=== PATIENT | male | born 1945 | race Caucasian/White ===

== ENCOUNTER 2017-05-30 06:29 | Emergency (ER) | payer BC ==
[~2017-05-30] VITALS: Ht 162.6 cm; Wt 86.6 kg
[2017-05-30] MEDS ORDERED: SODIUM CHLORIDE 0.9% 1,000 ML IV ONE (07:44)
[2017-05-30] MEDS ORDERED: KETOROLAC TROMETH 30 MG/ML 1ML VIAL IV ONE (07:45)
[2017-05-30 08:26] LABS: Urine Bilirubin Negative (Negative); Urine Blood Negative /uL (Negative); Urine Color Yellow (Yellow); Urine Glucose Normal (Normal); Urine Ketone 1+ (Negative); Urine Mucus FEW (None Seen); Urine Nitrite Negative (Negative); Urine RBC <1 /hpf (0 - 3); Urine Squamous Epithelial Cell FEW /hpf (<5); Urine Urobilinogen Normal (Negative); Urine pH 5.5 (5.0-8.0)
[2017-05-30 09:50] LABS: Basophils # (auto) 0.1 uL; Basophils % (auto) 0.3 % (0.0-2.0); Eosinophils # (auto) 0.1 uL; Eosinophils % (auto) 0.3 % (0.0-7.0); Hematocrit 42.8 % (41.0-53.0); Hemoglobin 14.4 g/dL (13.5-17.5); Lymphocytes # (auto) 1.7 uL; Mean Corpuscular Hemoglobin 31.4 pg (28.0-32.0); Mean Corpuscular Hgb Conc. 33.6 g/dL (32.0-36.0); Mean Corpuscular Volume 93.6 fL (80.0-100.0); Mean Platelet Volume 9.1 fL (6.9-10.8); Neutrophils # (auto) 13.9 uL; Neutrophils % (auto) 83.4 % (37.0-80.0); Platelet Count (auto) 168 10^3/uL (140-450); Red Cell Distribution Width 14.1 % (11.8-14.3); White Blood Cell 16.7 10^3/uL (4.4-10.8)
[2017-05-30 10:02] LABS: Albumin 3.1 g/dL (3.4-5.0); BUN/Creatinine Ratio 12.1; Calcium 8.2 mg/dL (8.5-10.1); Potassium 3.8 mmol/L (3.5-5.1); Total Protein 6.4 g/dL (6.4-8.2)
[2017-05-30] MEDS ORDERED: cefTRIAXone 1GM/50ML D5W 50 ML IV ONE (10:45)
[2017-05-30 11:15] VITALS: BP 128/88
== END 2017-05-30 11:49 | disposition home or self-care (01) ==
LOC: ER 06:34
DX: J40 Bronchitis, not specified as acute or chronic (principal); E86.0 Dehydration; F17.210 Nicotine dependence, cigarettes, uncomplicated
CPT/HCPCS: 36415; 71020; 74176; 80053; 81001; 82150; 82962; 83690; 84484; 85025; 93005; 96361; 96365; 96375; 99285; J0696; J1885; J7030